=== PATIENT | female | born 1975 | race Caucasian/White ===

== ENCOUNTER 2020-02-24 15:55 | Outpatient (CLI) | payer BC, SELFPAY ==
--- NOTE | ~2020-02-24 | MM_ITS ---
EXAMINATION: MM screening triston BI w edwina HISTORY: Screening mammogram TECHNIQUE: Craniocaudal and mediolateral oblique 3-D tomosynthesis images were obtained and synthetic 2-D images were generated. CAD analysis was submitted and interpreted. COMPARISON: 09/08/2018 diagnostic left digital mammogram 08/22/2018, 07/09/2016 bilateral digital screening mammogram examinations BREAST PARENCHYMAL COMPOSITION: There are scattered areas of fibroglandular density. FINDINGS: There is no evidence of suspicious mass, calcification, or architectural distortion to sugg est malignancy in either breast. There has been no suspicious interval change. IMPRESSION: 1. No mammographic evidence of malignancy. 2. Recommend routine screening mammography in one year. BI-RADS Category 1: Negative Reviewed, dictated and finalized at location A. IALTY THERAPIST
== END 2020-02-24 15:56 | disposition home or self-care (01) ==
LOC: ANHIMG 15:56
PROVIDERS: PCP Physician Assistant; Visit Provider Obstetrics & Gynecology
DX: Z12.31 Encounter for screening mammogram for malignant neoplasm of breast (principal)
CPT/HCPCS: 77063; 77067

== ENCOUNTER 2020-09-02 08:07 | Outpatient (CLI) | payer BC, SELFPAY ==
--- NOTE | ~2020-09-02 | XR_ITS ---
EXAMINATION: XR barium swallow EXAM DATE: 09/02/2020 08:45 INDICATION: Dysphagia. Dry foods and pills getting stuck. TECHNIQUE: Standard thick followed by thin contrast barium esophagram examination was performed by Dr Estelita Ya, radiologist. Patient declined swallowing and 11 mm barium tablet. Pulsed dose reductio n fluoroscopy was used with fluoroscopic time of 0.5 minutes. The DAP for this procedure was 0.3 Gycm 2. A total of 101 images obtained for the exam. There is no prior study for comparison. FINDINGS: The pharynx is symmetric and without evidence of mass lesion or mucosal irregularity. Ther e is no esophageal stricture or mass identified. There are no esophageal diverticula. Gastroesophag eal junction is normal in appearance. IMPRESSION: Normal exam. Reviewed, dictated and finalized at location A. IMPRESSION: Normal exam.
== END 2020-09-02 08:08 | disposition home or self-care (01) ==
PROVIDERS: PCP Physician Assistant; Visit Provider Physician Assistant
DX: R13.10 Dysphagia, unspecified (principal)
CPT/HCPCS: 74220

== ENCOUNTER 2020-09-21 13:53 | Outpatient (CLI) | payer BC, SELFPAY ==
--- NOTE | 2020-09-21 16:27 | WPDPFTINT ---
PFT Procedure Performed PFT Procedure Performed Spirometry with Pre/Post Bronchodilator Plethysmography (Lung Vol) Diffusing Cap (DLCO) Flow Vol Loop PFT Interpretation This is a pulmonary function test with pre and post-bronchodilator spirometry, plethysmography and diffusing capacity. The test was performed and results interpreted in accordance with the 2019 and 2005 ATS/ERS Task Force guidelines respectively using the Global Lung Function Initiative-2012 reference equations. Patient demonstrated good effort and cooperation. Reproducibility criteria were met. The quality of the pre bronchodilator spirometry maneuver was Grade A and post bronchodilator spirometry maneuver was Grade B. Findings: Spirometry: the contour the inspiratory and expiratory flow tracing are normal. The pre bronchodilator FVC is 4.34 L, 110% predicted. The pre bronchodilator FEV1 is 3.11 L, 98% predicted. The FEV1: FVC ratio 72%. The post bronchodilator FVC is 4.20 L, representing a 3% decrease. The post bronchodilator FEV1 is 3.13 L, representing 1% increase. Plethysmography: The total lung capacity is 5.93 L, 108% predicted. The functional residual capacity is 2.91 L, 95% predicted. The residual volume is 1.59 L, 87% predicted. Diffusing capacity: The absolute diffusion capacity is 20.5, 83% predicted. The diffusing capacity corrected for alveolar volume is 4.23, 93% predicted. Impression: The spirometry is normal without evidence of an obstructive abnormality. There is no significant improvement after inhaling a single dose of albuterol. The lung volumes are normal. The diffusing capacity is normal. There are no prior studies for comparison
== END 2020-09-21 13:54 | disposition home or self-care (01) ==
PROVIDERS: PCP Physician Assistant; Visit Provider Physician Assistant
DX: J45.909 Unspecified asthma, uncomplicated (principal)
CPT/HCPCS: 94060; 94726; 94729

== ENCOUNTER 2021-10-25 12:43 | Outpatient (CLI) | payer BC, SELFPAY ==
--- NOTE | ~2021-10-25 | MM_ITS ---
EXAMINATION: MM screening triston BI w edwina HISTORY: Screening TECHNIQUE: Craniocaudal and mediolateral oblique 3-D tomosynthesis images were obtained and synthetic 2-D images were generated. CAD analysis was submitted and interpreted. COMPARISON: Comparison to multiple prior studies sequentially, with oldest reviewed study dated 07/09. BREAST PARENCHYMAL COMPOSITION: The breasts are extremely dense, which lowers the sensitivity of mamm ography FINDINGS: There is no evidence of suspicious mass, calcification, or architectural distortion to sugg est malignancy in either breast. There has been no suspicious interval change. IMPRESSION: 1. No mammographic evidence of malignancy. 2. Recommend routine screening mammography in one year. BI-RADS Category 1: Negative Reviewed, dictated and finalized at location A.
== END 2021-10-25 12:44 | disposition home or self-care (01) ==
PROVIDERS: PCP Physician Assistant; Visit Provider Obstetrics & Gynecology
DX: Z12.31 Encounter for screening mammogram for malignant neoplasm of breast (principal)
CPT/HCPCS: 77063; 77067

== ENCOUNTER 2023-06-03 15:48 | Outpatient (CLI) | payer OTHER, SELFPAY ==
--- NOTE | ~2023-06-03 | MM_ITS ---
EXAMINATION: MM screening triston BI w edwina HISTORY: Screening mammogram TECHNIQUE: Craniocaudal and mediolateral oblique 3-D tomosynthesis images were obtained and synthetic 2-D images were generated. CAD analysis was submitted and interpreted. COMPARISON: 10/25/2021, 02/24/2020 bilateral screening mammogram examinations BREAST PARENCHYMAL COMPOSITION: The breasts are heterogeneously dense, which may obscure small masses . FINDINGS: There is no evidence of suspicious mass, calcification, or architectural distortion to sugg est malignancy in either breast. There has been no suspicious interval change. IMPRESSION: 1. No mammographic evidence of malignancy. 2. Recommend routine screening mammography in one year. BI-RADS Category 1: Negative Reviewed, dictated and finalized at location A.
== END 2023-06-03 15:49 | disposition home or self-care (01) ==
LOC: ANHIMG 15:50
PROVIDERS: PCP Physician Assistant; Visit Provider Obstetrics & Gynecology
DX: Z12.31 Encounter for screening mammogram for malignant neoplasm of breast (principal)
CPT/HCPCS: 77063; 77067

== ENCOUNTER 2023-10-25 09:13 | Outpatient (CLI) | payer OTHER, SELFPAY ==
--- NOTE | ~2023-10-25 | CT_ITS ---
Clinical Indication: Abnormal weight loss CT Scan of the Chest, Abdomen, and Pelvis with Contrast: Technique: Contiguous sections were acquired throughout the chest, abdomen, and pelvis after intraven ous administration of 100 cc of Omnipaque 350. Dose reduction technique was used on this scan by uti lizing automated exposure control and iterative reconstruction technique. The dose-length product (DL P) was 428.48 mGy-cm. Findings: There is no evidence of any significant mediastinal, hilar or axillary lymphadenopathy. The mediastin al soft tissues and vascular structures appear normal. There is no evidence of pleural or pericardial effusion. 3 mm right upper lobe pulmonary nodule noted (axial image 29). Several calcified granulomas are prese nt. The liver, spleen, pancreas, gallbladder, adrenals and kidneys are within normal limits. No evidence of aortic aneurysm. No lymphadenopathy. No bowel obstruction or bowel wall thickening. There is no evidence to suggest acute appendicitis. Urinary bladder is unremarkable. Probable small bilateral adnexal cysts. Small amount of free fluid p resent in the pelvis. Impression: Small bilateral adnexal cysts with small amount of free fluid in the pelvis. 3 mm right upper lobe pulmonary nodule. According to Fleischner Society criteria, for a low-risk lonnie ent, no further follow-up required. For a high-risk patient, consider 12 month follow-up CT. Reviewed, dictated and finalized at [facility]. Impression: Small bilateral adnexal cysts with small amount of free fluid in the pelvis. 3 mm right upper lobe pulmonary nodule. According to Fleischner Society criteri a, for a low-risk patient, no further follow-up required. For a high-risk patie nt, consider 12 month follow-up CT.
== END 2023-10-25 09:14 ==
PROVIDERS: PCP Physician Assistant; Visit Provider Physician Assistant
DX: R91.1 Solitary pulmonary nodule (principal); N83.8 Other noninflammatory disorders of ovary, fallopian tube and broad ligament
CPT/HCPCS: 71260; 74177; Q9967

== ENCOUNTER 2024-12-15 14:08 | Outpatient (CLI) | payer OTHER, SELFPAY ==
--- NOTE | ~2024-12-15 | MM_ITS ---
EXAMINATION: MM screening triston BI w edwina HISTORY: Screening TECHNIQUE: Craniocaudal and mediolateral oblique 3-D tomosynthesis images were obtained and synthetic 2-D images were generated. CAD analysis was submitted and interpreted. COMPARISON: 10/25/2021 BREAST PARENCHYMAL COMPOSITION: The breasts are heterogeneously dense, which may obscure small masses. FINDINGS: There is no evidence of suspicious mass, calcification, or architectural distortion in either breast to suggest malignancy. Asymmetry in the upper left breast, middle to posterior depth, seen in the left MLO projection. IMPRESSION: 1. Asymmetry in the upper left breast, middle to posterior depth, seen in the left MLO projection. The study is incomplete. A diagnostic mammogram and a diagnostic ultrasound are recommended. 2. No mammographic evidence for lesions in the right breast. BI-RADS 0: Incomplete-Need additional imaging evaluation. Reviewed, dictated and finalized at location Q. IMPRESSION: 1. Asymmetry in the upper left breast, middle to posterior depth, seen in the l eft MLO projection. The study is incomplete. A diagnostic mammogram and a diagn ostic ultrasound are recommended. 2. No mammographic evidence for lesions in the right breast. BI-RADS 0: Incomplete-Need additional imaging evaluation.
--- OUTSIDE RECORDS SUMMARY | 2024-12-15 14:23 | XMS_ITS | Clinical Summary ---
Author Organization 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 [address] BCBS BLUE ACCESS/TRUE BLUE PPO Care Teams Cycle Repairer Relationship Specialty Start Date End Date Marysol Boone MD [address] [place] [address] PCP - General 05/02/09
--- OUTSIDE RECORDS SUMMARY | 2024-12-15 14:23 | XMS_ITS | Encounter Summary ---
Author Organization [facility] Address [address] [place] [address] Care Team Providers Care Regional Facilities Specialist Name Role Phone Marysol Boone MD Primary Care Provider [phone] Encounter Details Date Type Department Care Team (Late st Contact Info) Description 08/29/2022 Lab Requisition [facility] - DermPath Lab [address] [facility] [place] [id number] Cecilia Baxter DO [address] [facility] [address] [place] [address] Social History Tobacco Use Types Packs/Day Years Used Date Smoking Tobacco: Never Assessed Comments Unknown Sex and Gender Information Value Date Recorded Sex Assigned at Not on file Legal Sex Female 3:22 PM CDT Gender Identity Not on file Sexual Orientation Not on file documented as of this encounter Plan of Treatment Not on file documented as of this encounter Procedures Procedure Name Priority Date/Time Associated Diagnosis Comments DERMATOPATHOLOGY Routine 08/29/2022 11:0 6 AM CDT documented in this encounter Results * DERMATOPATHOLOGY (08/29/2022 11:06 AM CDT) Case Report Dermatopathology Report Case: [id number] Authorizing Provider: Cecilia Baxter DO Collected: 08/29/2022 11:06 AM Ordering Location: [facility] DermPath Lab Received: 08/29/2022 03:54 PM Pathologist: Laurel Boss MD Specimen: Skin, left back 3 12:57 PM CDT DERMATOPATHOLOGY LABORATORY Final Diagnosis Specimen A. SKIN, left back: BENIGN VERRUCOUS KERATOSIS, INFLAMED (L82.1) EPIDERMAL NECROSIS SUGGESTIVE OF EXCORIATION (L98.499) 3 12:57 PM CDT DERMATOPATHOLOGY LABORATORY at 1257 CDT Clinical History R/O: NMSC 3 12:57 PM CDT DERMATOPATHOLOGY LABORATORY Gross Description Specimen A: Received is one formalin filled container labeled with the patient's name and designated left back. The specimen consists of a shave biopsy measuring [id number]. Jar 0. 3 12:57 PM T DERMATOPATHOLOGY LABORATORY Microscopic Description Specimen A. SKIN, left back: Sections show hyperkeratosis, papillomatosis, hypergranulosis, and acanthosis. Inflammatory cells are present within the dermis. These histological findings can be seen in a verruca vulgaris or a seborrheic keratosis. The epidermis is focally necrotic and covered with a scale-crust. There is fibrin at the base. 3 12:57 PM CDT DERMATOPATHOLOGY LABORATORY Disclaimer An external and internal positive and negative controls are appropriate for the histochemical, immunohistochemical and immunofluorescence stain(s) in this case (if any), except where stated explicitly. The performance characteristics of the stain(s) cited in this report were developed and its performance characteristic determined by the Dermatopathology Laboratory at [facility], directed by Dr. Nisha Gray. These tests need not be, and therefore are not, approved by the [place] Food and Drug Administration. The tests are used for clinical purposes. Billing Codes Specimen Charges Stain Charges 92699 1 3 12:57 PM CDT DERMATOPATHOLOGY LABORATORY Embedded Images 3 12:57 PM CDT DERMATOPATHOLOGY LABORATORY Pathology/Cytolo gy TISSUE SPECIMEN FROM SKIN / Unknown 08/29/2022 11:06 AM CDT 08/29/2022 3:54 PM CDT us Cecilia Baxter DO LAB - PATHOLOGY/CYTOLOGY ORDERABLES Final Result DERMATOPATHOLOGY LABORATORY [facility] - Department of Dermatology [facility] Specialized Medicine [address] [place] [address], [address] [phone] documented in this encounter Visit Diagnoses Not on filedocumented in this encounter Care Teams Regional Facilities Specialist Relationship Specialty Start Date End Date Marysol Boone MD [address] [place] [address] PCP - General 12/07/21 documented as of this encounter
--- OUTSIDE RECORDS SUMMARY | 2024-12-15 14:23 | XMS_ITS | Clinical Summary ---
Author Organization [facility] Address [address] [place] [address] Care Team Providers Care Motion Picture Commentator Name Role Phone Lizette Chackodylan MONROY Primary Care Pr ovider Virgie Sifuentes MD Unavailable Michael Candelaria MD Unavailable [phone] Isatu Rees MD Unavailable [phone] Cecilia Baxter DO Unavailable [phone] Allergies Active Allergy Reactions Criticality Noted Date Comments Gadoterate Meglumine Vision changes Medium 12/19/2017 Patient had her eyes closed during the MRI scan. She did not notice any problem during the scan. Afterwards, when she opened her eyes, she had sever blurry vision for 10 minutes, then moderate blurry vision for 2 hours, which completely resolved by ~3 hours. Denies floaters, dizziness, dysgusia, or hearing problems. Consider using an alternative contrast agent (ie Multihance) if repeated contrast enhanced MRI is clinically indicated. Influenza A (H1n1) Vac 09 (Pf) Itching,Dizziness Low 09/22/2015 Influenza Virus Vaccines Itching,Swelling Medium 11/11/2023 Penicillins Itching Low 11/11/2023 Sulfa (Sulfonamide Antibiotics) Itching,Dizziness Low 07/30/2017 Sulfamethoxazole-Trime thoprim Dizziness,Itching Low 07/20/2020 Medications EPINEPHrine (EPIPEN) 0.15 mg/0.3 mL injection syringeIndications :Anaphylaxis,for flu shot Inject 0.3 mL (0.15 mg total) into the muscle as instructed as needed for anaphylaxis 10/14/19 13 Active albuterol HFA (PROVENTIL HFA,VENTOLIN HFA,PROAIR HFA) 90 mcg/actuation inhalerIndications :Acute Asthma Attack Inhale 2 puffs every 4 (four) hours as needed for wheezing or shortness of breath Active montelukast (SINGULAIR) 5 mg chewable tabletIndications: Maintenance Therapy for Asthma Take 1 tablet (5 mg total) by mouth nightly Active cholecalciferol, vitamin D3, 1,000 unit tablet,chewableInd ications:Vitamin D Deficiency,supplem ent Take 2 tablet/chew tab by mouth nightly Active diphenhydrAMINE (BENADRYL) elixir 12.5 mg/5 mLIndications:roland rgies Take 3 mL (7.5 mg total) by mouth as needed for itching or allergies Active estradioL (ESTRACE) 0.01 % (0.1 mg/gram) vaginal creamIndications:A trophy of Vulva Insert 2 g into the vagina 2 (two) times a week 04/08/19 25 Active oxyCODONE (ROXICODONE) 5 mg immediate release tabletIndications: Pain Take 1 tablet (5 mg total) by mouth every 4 (four) hours as needed for pain (Breakthrough Pain) 30 tablet 09/17/19 25 Active pregabalin (LYRICA) 75 mg capsuleIndications :Postoperative Acute Pain Take 1 capsule (75 mg total) by mouth 2 (two) times a day for 14 days 28 capsule 09/17/19 25 Active traMADoL (ULTRAM) 50 mg tablet Take 1 tablet (50 mg total) by mouth every 8 (eight) hours as needed for pain 42 tablet 09/17/19 25 Active acetaminophen (TYLENOL) 500 mg tabletIndications: Pain Take 2 tablets (1,000 mg total) by mouth every 8 (eight) hours 90 tablet 09/17/19 25 Active aspirin 81 mg enteric coated tabletIndications: prevention of thrombosis Take 1 tablet (81 mg total) by mouth 2 (two) times a day 60 tablet 09/17/19 25 Active meloxicam (MOBIC) 15 mg tabletIndications: Postoperative pain Take 1 tablet (15 mg total) by mouth daily 30 tablet 09/17/19 25 Active ondansetron ODT (ZOFRAN-ODT) 4 mg disintegrating tabletIndications: Prevention of Post-Operative Nausea and Vomiting Take 1 tablet (4 mg total) by mouth every 8 (eight) hours as needed for nausea or vomiting 10 tablet 09/17/19 25 Active senna-docusate (PERICOLACE) 8.6-50 mg Take 2 tablets by mouth 2 (two) times a day 80 tablet 1 09/17/19 25 Active pantoprazole (PROTONIX) [address] for susp in packet Take 0.5 packets (20 mg total) by mouth daily 15 packet 09/17/19 25 Active amoxicillin 500 mg tablet/capsuleIndi cations:Prophylaxi s, Medical TAKE 4 PILLS 1 HOUR BEFORE DENTAL APPOINTMENT. 12 tablet/capsu le 10/13/19 25 Active clindamycin (CLEOCIN) 300 mg capsuleIndications :Prophylaxis, Surgical TAKE 2 PILLS 1 HOUR BEFORE DENTAL APPOINTMENT. 6 capsule 10/13/19 25 Active Active Problems Problem Noted Date Diagnosed Date Left hip pain 07/31/2024 Osteoarthritis of hip 10/09/2023 Arthralgia of left knee 06/05/2023 Pain of left hip joint 06/05/2023 Herpes zoster 02/04/2022 Basal cell carcinoma (BCC) of right forehead 02/2022 Dizziness 09/20/2021 Intermittent dysphagia 09/20/2021 Intracranial meningioma 09/20/2021 Seasonal allergic rhinitis 09/20/2021 Posterior vitreous detachment of left eye 2021 Assessment & Plan (07/13/2021 10:51 AM CDT): Retina flat and intact on WEBSITE DEVELOPER, [employer] photos today. Assessment & Plan (05/11/2021 12:19 PM OILER HELPER): Patient was educated on diagnosis. Moderate/high myopia. No retinal break or tear on depressed exam. Optic neuropathy, right 05/02/2018 Migraine without aura and wi thout status migrainosus, not intractable 07/30/2017 Chronic tension-type headache, not intractable 0 07/30/2017 Meningioma 09/01/2015 Optic neuropathy, right 09/01/2015 Diagnosis unknown 10/13/2012 Diagnosis unknown 06/21/2010 Encounters Date Type Department Care Team Description 11/03/2024 3:00 PM CDT Office Visit [facility] Medicine Orthopaedic Surgery [address] [facility] [address] [facility] [address] [place] [id number] Carlos Mendez MD Orthopedic aftercare (Primary Dx); Left hip pain 10/12/2024 Orders Only [facility] Orthopaedic Surgery [address] [facility] [address] [facility] [address] [place] [id number] Carlos Mendez MD 10/12/2024 Orders Only [facility] Medicine Orthopaedic Surgery [address] [facility] [address] [facility] [address] [place] [address] Carlos Mendez MD 10/06/2024 3:00 PM CDT Office Visit [facility] Orthopaedic Surgery [address] [facility] [address] [facility] [address] [place] [address] Carlos Mendez MD Orthopedic aftercare (Primary Dx) 10/06/2024 2:23 PM CDT - 10/06/2024 11:59 PM CDT Hospital Encounter [facility] [address] [facility] [address] [place] [address] Orthopedic aftercare Discharge Disposition: Discharge to home or self care 09/21/2024 Orders Only [facility] Medicine Orthopaedic Surgery [address] [facility] [address] [place] [address] [place] [address] Carlos Mendez MD 09/16/2024 8:55 AM CDT - 09/16/2024 11:30 AM CDT Surgery [facility] Operating Room [address] [place] [address] Carols Mendez MD ARTHROPLASTY TOTAL HIP - ANTERIOR APPROACH-LEFT 09/16/2024 8:52 AM CDT Anesthesia Event [facility] Operating Room [address] [place] [address] Corrie Talbot MD Wiethuchter, Kelli P., NP 09/16/2024 6:35 AM CDT - 09/16/2024 3:42 PM CDT Hospital Encounter [facility] Operating Room [address] [address] Carlos Mendez MD Primary osteoarthritis of left hip (Primary Dx) Discharge Disposition: Discharge to home or self care from Last 3 Months Immunizations Immunization Administration Dates Next Due Pfizer SARS-CoV-2 Monovalent Vaccination (12+ Yrs) PURPLE 08/13/2020,07/23/2020 Surgical History Surgery Date Site/Laterality Comments LA DELIVERY ONLY Section - (Added by TW Conv) CRANIOTOMY Craniotomy (Therapeutic) - 10/2015 (Added by TW Conv) BONE GRAFT right femur ECTOPIC SURGERY Medical History Medical History Date Comments Personal history of other di seases of the digestive system History of esophageal reflux - (Added by TW Conv) Personal history of other me ntal and behavioral disorders History of anxiety disorder - (Added by TW Conv) Meningioma (HCC) Allergies Arthritis Asthma Migraine Hx of radiation therapy 07/2019 PONV (postoperative nausea a nd vomiting) Family History Medical History Relation Name Comments Migraines Child Family history of migraine headaches - (Added by TW Conv) Brain cancer Father Cancer, brain; /Family history of glioblastoma - (Added by TW Conv) Heart disease Father Family history of cardiac disorder - (Added by TW Conv) Heart disease Mother Family history of cardiac disorder - (Added by TW Conv) Hypertension Mother Hypertension; Migraines Mother Family history of migraine headaches - (Added by TW Conv) Rheum arthritis Mother Rheumatoid a rthritis; Other Other 1 Family history of Transient ischemic attack; Stroke Other 2 Family history of cerebrovascular accident (CVA) - (Added by TW Conv) Hypertension Other 3 Family history of hypertension - (Added by TW Conv) Brain cancer Other 4 Brain tumor - ( Added by TW Conv) Heart disease Other 5 Family history of cardiac disorder - (Added by TW Conv) Breast cancer Paternal Grandmother Family history of malignant neoplasm of breast - (Added by TW Conv) Migraines Sister Family history of migraine headaches - (Added by TW Conv) Anesthesia problems Neg Hx Relation Name Status Comments Child Father Mother Other 1 Other 2 Other 3 Other 4 Other 5 Paternal Grandmother Sister Social History Tobacco Use Types Packs/Day Years Used Date Smoking Tobacco: Never Passive Smoke Exposure: Past Smokeless Tobacco: Never Tobacco Cessation:Counseling Given: Not Answered Alcohol Use Standard Drinks/Week Comments No 0 (1 standard drink = 0.6 oz pur e alcohol) AUDIT-C Answer Date Recorded Q1: How often do you have a drink containing alc ohol? 2-4 times a month 09/16/2024 Q2: How many drinks containi ng alcohol do you have on a typical day when you are drinking? 1 or 2 09/16/2024 Q3: How often do you have si x or more drinks on one occasion? Never 09/16/2024 Personal Safety Answer Date Recorded Have you ever been in or are you currently in a harmful physical or emotional relationship or is someone making you feel afraid or unsafe? 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 Gender Identity Not on file Sexual Orientation Not on file Obstetrics History Last Filed Vital Signs Vital Sign Reading Time Taken Comments Blood Pressure 97/52 09/16/2024 2:35 PM CDT Pulse 50 09/16/2024 2:35 PM CDT Temperature 35.8 C (96.4 F) 09/16/2024 11:20 AM CDT Respiratory Rate 13 09/16/2024 2:35 PM CDT Oxygen Saturation 99% 09/16/2024 2:35 PM CDT Inhaled Oxygen Concentration - - Weight 59.1 kg (130 lb 6.4 oz) 09/16/2024 6:48 A M CDT Height 170.2 cm (5' 7) 09/16/2024 7:09 AM CDT Body Mass Index 20.42 09/16/2024 6:48 AM CDT Plan of Treatment Health Maintenance Due Date Last Done Comments Breast Cancer Screening-Mammogram 1975 Cervical Cancer Screening 1975 Colon Cancer Screening-Colonoscopy 1975 Depression Screening 1975 Hepatitis C Screening 1975 DTaP/Tdap/Td Vaccine (1 - Tdap) 1986 Hepatitis B Screening 1993 Regular Well Visit/Exam 18-64 1993 Covid-19 Vaccine (4 - 2024-2 6 season) 2024 02/26/2021, 08/13/2020, 07/23/2020 Influenza Vaccine (#1) 2024 Pneumococcal vaccine <65 Aged Out No longer eligible based on patient's age to complete this topic Medical Devices Implanted Type Area Spinning And Winding Supervisor Device Identifier Shelf Expiration Date Model / Serial / Lot Craniotomy,Arik wallace Screw Cranial [employer] Insert Trident 0deg 36mm 723-00-36d - [id number] Implanted:Qty: 1 on 09/16/2024 at [facility] Left: Hip [employer] 06/08/2029 723-00-36D / / [id number] [employer] Shell Acetabular Trident Ii Tritanium D Od48mm Hip 3 Screw Hole Cluster Sterile 702-04-48d - [id number] Implanted:Qty: 1 on 09/16/2024 at [facility] Left: Hip [employer] 06/02/2029 702-04-48D / / [id number] [employer] Stem Insignia Hip Size 4 Standard 4223-4491 - [id number] Implanted:Qty: 1 on 09/16/2024 at [facility] Left: Hip [employer] 11/20/2028 9362-8006 / / [id number] [employer] Head Femoral Hip Taper V40 Biolox Delta 36mm Ceramic +0mm Offset [id number] - [id number] Implanted:Qty: 1 on 09/16/2024 at [facility] Left: Hip [employer] 04/07/2029 [id number] / / [id number] Procedures Procedure Name Priority Date/Time Associated Diagnosis Comments XR HIP LEFT W PELVIS 2 OR 3 VIEWS Schedule Routine, Read Routine (OP Routine) 10/06/2024 2:32 PM CDT Orthopedic aftercare XR PELVIS ORTHO VIEW ED Urgent/IP Urgent 09/16/2024 11:25 AM CDT FL FLUOROSCOPY < 1 HOUR IP Routine 09/16/2024 10:47 AM CDT XR PELVIS (RADLINK) 1 OR 2 VIEWS IP Routine 09/16/2024 10:45 AM CDT LA AN PROCEDURE PLACEHOLDER Routine 09/16/2024 9:33 AM CDT LA AN ELECTIVE SUPRAGLOTTIC AIRWAY Routine 09/16/2024 9:33 AM CDT ARTHROPLASTY TOTAL HIP - ANTERIOR APPROACH 09/16/2024 8:51 AM CDT Primary osteoarthritis of left hip Left hip pain Special Needs [place] Table LA AN PROCEDURE PLACEHOLDER Routine 09/16/2024 8:50 AM CDT POCT HCG, URINE Routine 09/16/2024 7:00 AM CDT from Last 3 Months Results * XR Hip Left 2 or 3 Views W Pelvis (10/06/2024 2:32 PM CDT) Anatomical Region Laterality Modality Lower Extremities, Hip, Pelvis Left C omputed Radiography 10/06/2024 4:08 PM CDT Impressions 10/06/2024 5:19 PM CDT 1. Left total hip arthroplasty in near anatomic alignment. Dictated by: Silvio De La Cruz MD The radiology attending physician has personally reviewed this study, and had reviewed and/or edited this written report and agrees with it. Electronically signed by: Gustavo Adamson M.D. Narrative 10/06/2024 5:19 PM CDT EXAMINATION: XR HIP LEFT 2 OR 3 VIEWS W PELVIS HISTORY: Left hip arthroplasty FINDINGS: 2 radiographs of the left hip are submitted with comparison made to radiographs from 09/16/2024. Left total hip arthroplasty in near-anatomic alignment. No periprosthetic fracture or lucency. Moderate right hip osteoarthritis. Interval resolution of subcutaneous gas Procedure Note Gustavo Adamson MD PhD - 10/06/2024 EXAMINATION: XR HIP LEFT 2 OR 3 VIEWS W PELVIS HISTORY: Left hip arthroplasty FINDINGS: 2 radiographs of the left hip are submitted with comparison made to radiographs from 09/16/2024. Left total hip arthroplasty in near-anatomic alignment. No periprosthetic fracture or lucency. Moderate right hip osteoarthritis. Interval resolution of subcutaneous gas IMPRESSION: 1. Left total hip arthroplasty in near anatomic alignment. Dictated by: Silvio De La Cruz MD The radiology attending physician has personally reviewed this study, and had reviewed and/or edited this written report and agrees with it. Electronically signed by: Gustavo Adamson M.D. Carlos Mendez MD IMG XR PROCEDURES Fi nal Result * XR Pelvis Ortho View (09/16/2024 11:25 AM CDT) Anatomical Region Laterality Modality Body, Pelvis N/A Computed Radiogr aphy 09/16/2024 11:5 1 AM CDT Impressions 09/16/2024 11:51 AM CDT New left total hip arthroplasty in expected position. Electronically signed by: Nasim Mark M.D. Narrative 09/16/2024 11:51 AM CDT EXAMINATION: XR PELVIS ORTHO VIEW HISTORY: Arthroplasty COMPARISON: 06/30/2024 FINDINGS: There is a new left total hip arthroplasty in expected position. There is intra-articular and periarticular soft tissue gas. No acute fracture. Unchanged moderate right hip osteoarthritis Procedure Note Nasim Mark MD - 09/16/2024 EXAMINATION: XR PELVIS ORTHO VIEW HISTORY: Arthroplasty COMPARISON: 06/30/2024 FINDINGS: There is a new left total hip arthroplasty in expected position. There is intra-articular and periarticular soft tissue gas. No acute fracture. Unchanged moderate right hip osteoarthritis IMPRESSION: New left total hip arthroplasty in expected position. Electronically signed by: Nasim Mark M.D. Ashkan Blackman MD IMG XR PROCEDURES Final R esult * FL Fluoroscopy < 1 Hour (09/16/2024 10:47 AM CDT) Narrative [facility] - 09/16/2024 10:47 AM CDT The images from this study are not interpreted by Radiology. Please refer to the physician's procedure / OR operative note. Carlos Mendez MD IMG FLUOROSCOPY PROC EDURES Final Result [facility] * XR PELVIS (RADLINK) 1 OR 2 VIEWS (09/16/2024 10:45 AM CDT) Narrative [facility] - 09/16/2024 10:46 AM CDT The images from this study are not interpreted by Radiology. Please refer to the physician's procedure / OR operative note. Carlos Mendez MD IMG XR PROCEDURES Fi nal Result [facility] * LA AN ELECTIVE SUPRAGLOTTIC AIRWAY, LA AN PROCEDURE PLACEHOLDER (09/16/2024 9:33 AM CDT) José Luis Billy CRNA - 09/16/2024 9:33 AM CDT José Luis Theodore CRNA 09/16/2024 9:33 AM Airway Patient location: OR Urgency: elective Indications for airway management: anesthesia Difficult airway: no Emergent airway documentation: Risks and benefits discussed: yes Consent obtained: yes Consent given by: patient Airway prep: Preoxygenated: yes Patient position: sniffing Mask difficulty assessment: 0 - not attempted Spontaneous ventilation during airway: absent Sedation level during airway: GA Final airway details: Final airway type: supraglottic airway Final supraglottic airway: IGel SGA size: 3 Number of attempts: 1 Ventilation between attempts: none Result [facility] Corrie Talbot MD ANESTHESIA ORDERABLES Fi nal Result * LA AN PROCEDURE PLACEHOLDER (09/16/2024 8:50 AM CDT) Narrative Corrie Talbot MD - 09/16/2024 8:50 AM CDT Corrie Talbot MD 09/16/2024 8:50 AM Spinal Block Patient location: pre-op holding Reason for block: primary anesthetic Procedure prep: Preprocedure checklist: patient identified, procedure contraindications assessed, site marked, procedure consent, surgical consent, IV checked, risks, benefits and alternatives discussed, monitors and equipment checked and timeout performed Patient position: sitting Procedure performed while patient: sedate with meaningful contact Monitoring: oximetry and blood pressure Supplemental O2: nasal cannula Prep solution: chlorhexadine/alcohol PPE: sterile gloves, provider hat/mask and sterile drape Skin infiltrated with lidocaine 1%: yes Spinal: Approach: midline Introducer used: yes Location: L2-3 Spinal injection: CSF demonstrated, no aspiration of heme and no paresthesias noted Number of attempts: 1 Spinal Needle: Needle type: Destiny Hema (Getie Hema) Needle gauge: 25 G Needle length: 9 cm Assessment: Events: patient tolerated procedure well with no complications Corrie Talbot MD ANESTHESIA ORDERABLES Fi nal Result * POCT hCG, urine (09/16/2024 7:00 AM CDT) HCG, ur, POC Negative Negative Lot Number [id number] QC Backgroud Clear Acceptable QC Control Line Acceptable Urine 09/16/2024 7:00 AM CDT Corrie Talbot MD POINT OF CARE TEST ORDER PARAG Final Result from Last 3 Months Insurance [employer] WORK[employer] COMPENSATION GENERIC Care Teams Motion Picture Commentator Relationship Specialty Start Date End Date Nannette Chacko PA PCP - General 07/30/17 Virgie Sifuentes MD Radiation Oncologist Radiation Oncology 06/08/19 Michael Candelaria MD Surgeon Neurosurgery 01/13/20 Isatu Rees MD [address] [place] [address] Consulting Physician Dermatology 02/03/22 Cecilia Baxter DO [address] [place] [address] Referring Physician Dermatology 02/03/22
--- OUTSIDE RECORDS SUMMARY | 2024-12-15 14:23 | XMS_ITS | Encounter Summary ---
Author Organization [facility] Address [address] [place] [address] Care Team Providers Care Disease Education Specialist Name Role Phone Nannette Chacko Primary Care Pr ovider Virgie Sifuentes MD Unavailable Marysol Alba PhD Unavailable [phone] Michael Candelaria MD Unavailable [phone] Isatu Rees MD Unavailable [phone] Cecilia Baxter DO Unavailable [phone] Encounter Details Date Type Department Care Team (Late st Contact Info) Description 11/23/2019 Telephone [facility] Radiation Oncology [address] 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 Gender Identity Not on file Sexual Orientation Not on file documented as of this encounter Plan of Treatment Not on file documented as of this encounter Visit Diagnoses Not on filedocumented in this encounter Care Teams Disease Education Specialist Relationship Specialty Start Date End Date Nannette Chacko PA PCP - General 07/30/17 Virgie Sifuentes MD Radiation Oncologist Radiation Oncology 06/08/19 Marysol Alba, PhD Nurse Practitioner Radiation Oncology 01/06/20 06/15/24 Michael Candelaria MD Surgeon Neurosurgery 01/13/20 Isatu Rees MD [address] [place], [place] [id number] Consulting Physician Dermatology 02/03/22 Cecilia Baxter DO [address] [place], [place] [id number] Referring Physician Dermatology 02/03/22 documented as of this encounter
--- OUTSIDE RECORDS SUMMARY | 2024-12-15 14:23 | XMS_ITS ---
Author Organization [facility] Address [address] [place] [address] Care Team Providers Care Pig Farmer Name Role Phone Ricco Nannette MONROY Primary Care Pr ovider Virgie Sifuentes MD Unavailable Michael Candelaria MD Unavailable [phone] Isatu Rees MD Unavailable [phone] Cecilia Baxter DO Unavailable [phone] Active Problems Problem Noted Date Diagnosed Date [...] AM CDT): Retina flat and intact on DIRECTOR OF PHARMACY, [employer] photos today. Assessment & Plan (05/11/2021 12:19 PM TENDER LABOR): Patient was educated on diagnosis. Moderate/high myopia. No retinal break or tear on depressed exam. Optic neuropathy, right 05/02/2018 Migraine without aura and wi thout status migrainosus, not intractable 07/30/2017 Chronic tension-type headache, not intractable 0 07/30/2017 Meningioma 09/01/2015 Optic neuropathy, right 09/01/2015 Diagnosis unknown 10/13/2012 Diagnosis unknown 06/21/2010 Current Treatment and Therapy Plans No current plan information found. Past Treatment and Therapy Plans No past plan information found. Radiation Treatments * Course C1_[id number]_2020 06/02/2019 - 07/09/2019 Treatment Period Energy Fraction Dose Fractions Total Dose Plans Planned Ethos 06/29/2019 - 07/09/2019 180 9 / 1,620 BRAIN 06/02/2019 - 06/26/2019 180 19 / 5,040 Reference Points Delivered [id number] 06/02/2019 - 07/09/2019 5,040 Lifetime Dose Tracking * Chemical Lifetime Dose Automatic Entry Manual Entr y Fluoro Time 0.723 minutes 0.723 minutes 0 minutes Air kerma at the reference point (Ka,r) 2.647 mGy 2 .647 mGy 0 mGy
--- OUTSIDE RECORDS SUMMARY | 2024-12-15 14:23 | XMS_ITS | Clinical Summary ---
Author Organization [facility] Address [address] [place] [address] Care Team Providers Care Final Cigar And Box Examiner Name Role Phone Marysol Boone MD Primary Care Provider [phone] Source Comments [facility],non-[facility] Affiliates and Associated Physician Practices is amultiple site organization consisting of ambulatory clinics and hospital sitesin [place], [place], [place] and [place]. This disclosure is being madepursuant to the Care Everywhere program and may not contain all information available regarding this patient. Last updated 17.[facility] Social History Tobacco Use Types Packs/Day Years Used Date Smoking Tobacco: Never Assessed Comments Unknown Sex and Gender Information Value Date Recorded Sex Assigned at Not on file Legal Sex Female 3:22 PM CDT Gender Identity Not on file Sexual Orientation Not on file Plan of Treatment Health Maintenance Due Date Last Done Comments COLOGUARD (AGES 45-75) - COL ON CA SCREENING 1975 COLON MONITORING 1975 COLONOSCOPY - COLON CA SCREENING 1975 CT COLONOGRAPHY - COLON CA SCREENING 1975 Colorectal Cancer Screening 1975 FIT - COLON CA SCREENING 1975 FLEX SIG - COLON CA SCREENING 1975 LIPID TESTING 1975 MAMMOGRAM 1975 HIV SCREENING 1990 HEPATITIS C SCREENING 02/15/1993 DTAP/TDAP/TD VACCINES (1 - Tdap) 1994 HEPATITIS B VACCINE (1 of 3 - 19+ 3-dose series) 1994 PAP SMEAR 02/21/1996 DEPRESSION SCREENING 03/25/2024 COVID-19 VACCINE (1 2023-2 5 season) 2024 INFLUENZA VACCINE (#1) 2024 ZOSTER VACCINE (1 of 2) 2025 HIB VACCINE Aged Out No longer eligi ble based on patient's age to complete this topic HPV VACCINE Aged Out No longer eligi ble based on patient's age to complete this topic MENINGOCOCCAL (Group B) VACC INE SHARED DECISION-MAKING Aged Out No longer eligibl e based on patient's age to complete this topic MENINGOCOCCAL GROUPS A/C/Y/W VACCINE Aged Out No longer eligible b ased on patient's age to complete this topic Insurance BOB Care Teams Final Cigar And Box Examiner Relationship Specialty Start Date End Date Marysol Boone MD [address] [place] [address] PCP - General 12/07/21
== END 2024-12-15 14:09 | disposition home or self-care (01) ==
PROVIDERS: PCP Physician Assistant; Visit Provider Obstetrics & Gynecology
DX: Z12.31 Encounter for screening mammogram for malignant neoplasm of breast (principal); R92.8 Other abnormal and inconclusive findings on diagnostic imaging of breast
CPT/HCPCS: 77063; 77067

== ENCOUNTER 2025-01-05 08:44 | Outpatient (CLI) | payer OTHER, SELFPAY ==
--- NOTE | ~2025-01-05 | MMUS_ITS ---
EXAMINATION: MM diagnostic triston LT w edwina, US breast LT limited HISTORY: Inconclusive mammogram TECHNIQUE: Additional 3-D tomosynthesis images of the left breast were performed and synthetic 2-D images were generated. CAD analysis was submitted and interpreted. High resolution left breast ultrasound was performed. COMPARISON: Mammograms from 12/15/2024, 06/03/2023 and 10/25/2021 BREAST PARENCHYMAL COMPOSITION: The left breast is heterogeneously dense, which may obscure small masses. FINDINGS: MAMMOGRAPHIC FINDINGS: The previously described asymmetry in the upper left breast, middle to posterior depth, seen in the left MLO projection represents summation artifact. No sonographic correlate. ULTRASOUND: No sonographic abnormality in the area of concern in the left breast. IMPRESSION: 1. Benign findings. Annual screening mammogram recommended. BI-RADS2: Benign Reviewed, dictated and finalized at location Q. IMPRESSION: 1. Benign findings. Annual screening mammogram recommended. BI-RADS2: Benign
--- OUTSIDE RECORDS SUMMARY | 2025-01-05 09:17 | XMS_ITS ---
Author Organization [facility] Address [address] [place] [address] Care Team Providers Care Finishing Manager Name Role Phone Ricco Nannette MONROY Primary Care Pr ovider Virgie Sifuentes MD Unavailable Micahel Candelaria MD Unavailable [phone] Isatu Rees MD Unavailable [phone] Cecilia Baxter DO Unavailable [phone] Active Problems Problem Noted Date Diagnosed Date [...] AM CDT): Retina flat and intact on RECORD TESTER, [employer] photos today. Assessment & Plan (05/11/2021 12:19 PM GYN): Patient was educated on diagnosis. Moderate/high myopia. [...] 180 19 / 5,040 Reference Points Delivered [id number] 06/02/2019 - 07/09/2019 5,040 Lifetime Dose Tracking * Chemical Lifetime Dose Automatic Entry Manual Entr y Fluoro Time 0.723 minutes 0.723 minutes 0 minutes Air kerma at the reference point (Ka,r) 2.647 mGy 2 .647 mGy 0 mGy
--- OUTSIDE RECORDS SUMMARY | 2025-01-05 09:17 | XMS_ITS | Encounter Summary ---
Author Organization [facility] Address [address] [place] [address] Care Team Providers Care Kieselguhr Regenerator Operator Name Role Phone Nannette Chacko Primary Care Pr ovider Virgie Sifuentes MD Unavailable Marysol Alba PhD Unavailable [phone] Michael Candelaria MD Unavailable [phone] Isatu Rees MD Unavailable [phone] Cecilia Baxter DO Unavailable [phone] Encounter Details Date Type Department Care Team (Late st Contact Info) Description 11/23/2019 Telephone [facility] Radiation Oncology [address] [place] [address] Kiara Kennedy MA Social History Tobacco Use Types Packs/Day Years Used Date Smoking Tobacco: Never Smokeless Tobacco: Never Alcohol Use Standard Drinks/Week Comments No 0 (1 standard drink = 0.6 oz pur e alcohol) Comments No Sex and Gender Information Value Date Recorded Sex Assigned at Not on file 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 Gender Identity Not on file Sexual Orientation Not on file documented as of this encounter Plan of Treatment Not on file documented as of this encounter Visit Diagnoses Not on filedocumented in this encounter Care Teams Kieselguhr Regenerator Operator Relationship Specialty Start Date End Date Nannette Chacko PA PCP - General 07/30/17 Virgie Sifuentes MD Radiation Oncologist Radiation Oncology 06/08/19 Marysol Alba, PhD Nurse Practitioner Radiation Oncology 01/06/20 06/15/24 Michael Candelaria MD Surgeon Neurosurgery 01/13/20 Isatu Rees MD [address] [place], [place] [id number] Consulting Physician Dermatology 02/03/22 Cecilia Baxter DO [address] [place], [place] [id number] Referring Physician Dermatology 02/03/22 documented as of this encounter
--- OUTSIDE RECORDS SUMMARY | 2025-01-05 09:17 | XMS_ITS | Clinical Summary ---
Author Organization [facility] Address [address] [place] [address] Care Team Providers Care Cloth Neutralizer Name Role Phone Marysol Boone MD Primary Care Provider Source Comments [facility],non-[facility] Affiliates and Associated Physician Practices is amultiple site organization consisting of ambulatory clinics and hospital sitesin [place], [place], [place] and [place]. This disclosure is being madepursuant to the Care Everywhere program and may not contain all information available regarding this patient. Last updated 17.[facility] Social History Tobacco Use Types Packs/Day [...] complete this topic Insurance BOB Care Teams Cloth Neutralizer Relationship Specialty Start Date End Date Marysol Boone MD [address] [place] [address] PCP - General 12/07/21
--- OUTSIDE RECORDS SUMMARY | 2025-01-05 09:17 | XMS_ITS | Encounter Summary ---
Author Organization [facility] Address [address] [place] [address] Care Team Providers Care Raw Silk Grader Name Role Phone Marysol Boone MD Primary Care Provider [phone] Encounter Details Date Type Department Care Team (Late st Contact Info) Description 08/29/2022 Lab Requisition [facility] - DermPath Lab [address] [facility] [place] [id number] Cecilia Baxter DO [address] [facility] [address] [place] [address] Social History Tobacco Use Types Packs/Day Years [...] AM CDT) Case Report Dermatopathology Report Case: [id number] Authorizing Provider: Cecilia Baxter DO Collected: 08/29/2022 11:06 AM Ordering Location: [facility] DermPath Lab Received: 08/29/2022 03:54 PM Pathologist: [...] specimen consists of a shave biopsy measuring 5i1c3dx. Jar 0. 3 12:57 PM T DERMATOPATHOLOGY [...] characteristic determined by the Dermatopathology Laboratory at [facility], directed by Dr. Nisha Gray. These tests need not be, and therefore are not, approved by the [place] Food and Drug Administration. The tests are used for clinical purposes. Billing Codes Specimen Charges Stain Charges 90150 1 3 12:57 PM CDT DERMATOPATHOLOGY LABORATORY Embedded Images 3 12:57 PM CDT DERMATOPATHOLOGY LABORATORY Pathology/Cytolo gy TISSUE SPECIMEN FROM SKIN / Unknown 08/29/2022 11:06 AM CDT 08/29/2022 3:54 PM CDT us Cecilia Baxter DO LAB - PATHOLOGY/CYTOLOGY ORDERABLES Final Result DERMATOPATHOLOGY LABORATORY [facility] - Department of Dermatology [facility] Specialized Medicine [address] [place] [address], [address] [phone] documented in this encounter Visit Diagnoses Not on filedocumented in this encounter Care Teams Raw Silk Grader Relationship Specialty Start Date End Date Marysol Boone MD [address] [place] [address] PCP - General 12/07/21 documented as of this encounter
--- OUTSIDE RECORDS SUMMARY | 2025-01-05 09:17 | XMS_ITS | Clinical Summary ---
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 [address] BCBS BLUE ACCESS/TRUE BLUE PPO Care Teams Journeyman Pipe Welder Relationship Specialty Start Date End Date Marysol Boone MD [address] [place] [address] PCP - General 05/02/09
--- OUTSIDE RECORDS SUMMARY | 2025-01-05 09:18 | XMS_ITS | Clinical Summary ---
Author Organization [facility] Address [address] [place] [address] Care Team Providers Care Plastic Cnc Machine Operator Name Role Phone Lizette Chackodylan MONROY Primary Care Pr ovider Virgie Sifuentes MD Unavailable Michael Candelaria MD Unavailable [phone] Isatu Rees MD Unavailable [phone] Cecilia Baxter DO Unavailable [phone] Allergies Active Allergy Reactions Criticality Noted Date [...] AM CDT): Retina flat and intact on STAVE AND BOLT EQUALIZER, [employer] photos today. Assessment & Plan (05/11/2021 12:19 PM SAMPLE GRADER): Patient was educated on diagnosis. Moderate/high myopia. No retinal break or tear on depressed exam. Optic neuropathy, right 05/02/2018 Migraine without aura and wi thout status migrainosus, not intractable 07/30/2017 Chronic tension-type headache, not intractable 0 07/30/2017 Meningioma 09/01/2015 Optic neuropathy, right 09/01/2015 Diagnosis unknown 10/13/2012 Diagnosis unknown 06/21/2010 Encounters Date Type Department Care Team Description 11/03/2024 3:00 PM CDT Office Visit [facility] Orthopaedic Surgery [address] Office [facility] [address] [place] [address] Carlos Mendez MD Orthopedic aftercare (Primary Dx); Left hip pain 10/12/2024 Orders Only [facility] Orthopaedic Surgery [address] [place] [address] Office [facility] [address] [place] [address] Carlos Mendez MD 10/12/2024 Orders Only [facility] Orthopaedic Surgery [address] [place] [address] Office [facility] [address] [place] [id number] Carlos Mendez MD 10/06/2024 3:00 PM CDT Office Visit [facility] Orthopaedic Surgery [address] [place] [address] Office [facility] [address] [place] [address] Carlos Mendez MD Orthopedic aftercare (Primary Dx) 10/06/2024 2:23 PM CDT - 10/06/2024 11:59 PM CDT Hospital Encounter [facility] [address] [place] [address] [address] [place] [address] Orthopedic aftercare Discharge Disposition: Discharge to home or self care from Last 3 Months Immunizations Immunization Administration Dates Next Due Pfizer SARS-CoV-2 Monovalent Vaccination (12+ Yrs) PURPLE 08/13/2020,07/23/2020 Surgical History Surgery Date Site/Laterality Comments [place] DELIVERY ONLY Section - (Added by TW Conv) CRANIOTOMY Craniotomy (Therapeutic) - 10/2015 (Added by Conv) BONE GRAFT right femur ECTOPIC SURGERY [...] on file Legal Sex Female 3:48 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 Gender Identity Not on file Sexual Orientation [...] Regular Well Visit/Exam 18-64 1993 Covid-19 Vaccine (2024-2 6 season) 2024 02/26/2021, 08/13/2020, 07/23/2020 Influenza Vaccine (#1) 2024 Pneumococcal vaccine <65 Aged Out No longer eligible based on patient's age to complete this topic Medical Devices Implanted Type Area Power Distribution Engineer Device Identifier Shelf Expiration Date Model / Serial / Lot Craniotomy,Titan eum Screw Cranial [employer] Insert Trident 0deg 36mm 723-00-36d - [id number] Implanted:Qty: 1 on 09/16/2024 at [facility] Left: Hip [employer] 06/08/2029 723-00-36D / / [id number] [employer] Shell Acetabular Trident Ii Tritanium D Od48mm Hip 3 Screw Hole Cluster Sterile 702-04-48d - [id number] Implanted:Qty: 1 on 09/16/2024 at [facility] Left: Hip [employer] 06/02/2029 702-04-48D / / [id number] [employer] Stem Insignia Hip Size 4 Standard 1187-2793 - [id number] Implanted:Qty: 1 on 09/16/2024 at [facility] Left: Hip [employer] 11/20/2028 [id number] / / [id number] [employer] Head Femoral Hip Taper V40 [employer] Delta 36mm Ceramic +0mm Offset [id number] - [id number] Implanted:Qty: 1 on 09/16/2024 at [facility] Left: Hip [employer] 04/07/2029 [id number] / / [id number] Procedures Procedure Name Priority Date/Time Associated Diagnosis Comments XR HIP LEFT W PELVIS 2 OR 3 VIEWS Schedule Routine, Read Routine (OP Routine) 10/06/2024 2:32 PM CDT Orthopedic aftercare from Last 3 Months Results * XR [...] it. Electronically signed by: Gustavo Adamson M.D. us Carlos Mendez MD IMG XR PROCEDURES Fi nal Result from Last 3 Months Insurance [employer] OOS [facility] H[facility]/PPO Address: [address] [address] [place] [address] C CHOICE [facility]US [facility] H[facility]/PPO Address: [address] [address] Care Teams Plastic Cnc Machine Operator Relationship Specialty Start Date End Date Nannette Chacko PA PCP - General 07/30/17 Virgie Sifuentes MD Radiation Oncologist Radiation Oncology 06/08/19 Michael Candelaria MD Surgeon Neurosurgery 01/13/20 Isatu Rees MD [address] [place], [place] [id number] Consulting Physician Dermatology 02/03/22 Cecilia Baxter DO [address] [place], [place] [id number] Referring Physician Dermatology 02/03/22
== END 2025-01-05 08:45 | disposition home or self-care (01) ==
PROVIDERS: PCP Physician Assistant; Visit Provider Obstetrics & Gynecology
DX: R92.8 Other abnormal and inconclusive findings on diagnostic imaging of breast (principal)
CPT/HCPCS: 76642; 77061; 77065; G0279

== ENCOUNTER 2025-02-23 13:47 | Outpatient (CLI) | payer OTHER, SELFPAY ==
--- NOTE | ~2025-02-23 | XR_ITS ---
EXAMINATION: XR chest 2V, 02/23/2025 13:54 CHIP TUNER HISTORY: PERSISTENT COUGH x 2 weeks, no inj, no surg, congest COMPARISON: No comparisons available. Technique: 2 views obtained. Findings: The lungs are clear, no effusion. No pneumothorax. Heart is normal size. Mediastinal and hilar contours are within normal limits. Bony thorax no acute abnormality. Impression: No acute cardiopulmonary abnormality. Reviewed, dictated and finalized at location P. TUNER Impression: No acute cardiopulmonary abnormality.
== END 2025-02-23 13:48 | disposition home or self-care (01) ==
LOC: GOSHIMG 13:47
PROVIDERS: PCP Physician Assistant; Visit Provider Physician Assistant
DX: R05.3 Chronic cough (principal)
CPT/HCPCS: 71046